=== PATIENT | male | born 1940 | race Caucasian/White ===

== ENCOUNTER 2018-01-24 17:39 | Emergency (ER) | END 2018-01-24 20:10 | disposition home or self-care (01) ==

== ENCOUNTER 2018-02-02 23:13 | Inpatient (IN) | END 2018-03-02 00:56 | DRG 853 ==

== ENCOUNTER 2018-03-05 17:24 | Inpatient (IN) | END 2018-03-13 02:00 | DRG 870 ==

== ENCOUNTER 2018-03-19 11:01 | Day surgery (SDC) | END 2018-03-19 19:05 ==

== ENCOUNTER 2018-04-01 16:50 | Day surgery (SDC) | END 2018-04-01 20:15 ==

== ENCOUNTER 2018-04-01 19:40 | Day surgery (SDC) | END 2018-04-01 20:15 ==

== ENCOUNTER 2018-04-05 14:30 | Inpatient (IN) | END 2018-04-09 10:32 | disposition EXP | DRG 871 ==